=== PATIENT | female | born 1990 | race African-American/Black ===

== ENCOUNTER 2018-06-03 15:01 | Emergency (ER) | payer OTHER ==
[~2018-06-03] VITALS: Ht 167.6 cm; Wt 54.4 kg
[~2018-06-03 15:01] MED LIST: BENADRYL25 MG PO; CLOBETASOL PROP60 G1 TP; DYNACIN100 MG PO; HYDROXYZINE PAM25 M1 PO; IBUPROFEN 600600 M1 PO; LORTAB 5 MG/5001 TAB PO; MEDROLDOSEPACK PO; NORCO 5-325 TA1 EACH PO; PREDNISONE 10 M10 M1; PREDNISONE50 MG PO; PSEUDOEPHEDRINE; TRIAMCINOLONE A80 G2 TOP; ULTRAM 50MG TAB50 MG PO; VISTARIL 25 MG25 M1 PO; ZANTAC 150MG T150 M1 PO
[2018-06-03 17:07] LABS: URINE COLOR YELLOW
[2018-06-03 17:08] LABS: URINE BILIRUBIN NEGATIVE (Negative); URINE BLOOD 2+ (Negative); URINE CLARITY CLEAR; URINE GLUCOSE-RANDOM* NEGATIVE (Negative); URINE KETONES NEGATIVE (Negative); URINE LEUKOCYTES-REFLEX NEGATIVE (Negative); URINE NITRITE-REFLEX NEGATIVE (Negative); URINE PROTEIN (DIPSTICK) NEGATIVE (Negative); URINE SPECIFIC GRAVITY < 1.005 (1.005-1.035); URINE UROBILINOGEN 0.2 E.U./dl (0.2-1.0)
[2018-06-03 17:12] LABS: BACTERIA-REFLEX None Seen /HPF (None Seen); CASTS None Seen /LPF (None Seen); CRYSTALS None Seen /LPF (None Seen); SQUAMOUS 0-3 Few /LPF (0-3); URINE RBC 0-2 Rare /HPF (0-2); URINE WBC-REFLEX None Seen /HPF (0-5)
[2018-06-03 17:44] VITALS: BP 135/86
== END 2018-06-03 17:45 | disposition home or self-care (01) ==
LOC: ER 15:01
PROVIDERS: Physician Assistant
DX: N93.8 Other specified abnormal uterine and vaginal bleeding (principal); Z88.8 Allergy status to other drugs, medicaments and biological substances